=== PATIENT | female | born 1985 | race Caucasian/White ===

== ENCOUNTER → 2016-07-06 14:21 | Outpatient (CLI) | payer SELFPAY | END | disposition home or self-care (01) | LOC: D.LABREF 14:21 | PROVIDERS: Obstetrics & Gynecology | DX: O09.893 Supervision of other high risk pregnancies, third trimester (principal) ==

== ENCOUNTER 2019-11-23 10:54 | Inpatient (IN) | payer SELFPAY ==
[~2019-11-23] VITALS: Ht 167.6 cm; Wt 75.3 kg
[2019-11-23 11:33] LABS: NITRITE NEGATIVE (NEGATIVE); SPECIFIC GRAVITY 1.005 (1.005-1.020)
[2019-11-23 11:34] LABS: BILIRUBIN NEGATIVE (NEGATIVE); GLUCOSE NEGATIVE (NEGATIVE); KETONE NEGATIVE (NEGATIVE); UROBILINOGEN NORMAL (NORMAL)
[2019-11-23 11:35] LABS: BACTERIA FEW /hpf (NEGATIVE); EPITHELIAL CELLS 0-5 /hpf (0-5); RED CELLS - URINE 0-5 /hpf (0-5)
[2019-11-23 11:36] LABS: YEAST OCC /hpf (NONE SEEN)
[2019-11-23 12:14] LABS: HEMATOCRIT 35.9 % (36.0-48.0); HEMOGLOBIN 12.1 g/dL (12-16); MCH 34.1 pg (26.0-34.0); MCHC 33.7 g/dL (31.0-37.0); MCV 101.1 fL (80.0-100.0); MEAN PLATELET VOLUME 9.6 fL (7.4-10.4); RBC 3.55 10x6/uL (4.00-5.40); WBC 12.9 10x3/uL (4.8-10.8)
[2019-11-23 12:15] LABS: PLATELET COUNT 395 10x3/uL (130-400)
[2019-11-23 12:30] LABS: EOSINOPHILS 1 % (0-7); LYMPHOCYTES 23 % (15-50); MONOCYTES 1 % (2-11); NEUTROPHILS 74 % (40-80); PLATELET ESTIMATE INCREASED
--- NOTE | 2019-11-23 13:12 | MORECARE ---
CASE MANAGEMENT DISCHARGE SUMMARY PATIENT: ZABRINA VELEZ UNIT: [id number] ADM DATE: 11/23/19 AGE: 34 : 81 SEX: F ROOM/BED: D.1275 AUTHOR: SAPNA CALVIN PHYSICIAN: REFERRING PHYSICIAN: TRICIA MONTERO MD DATE OF SERVICE: 11/23/19 Discharge Plan Patient Name: ZABRINA VELEZ Facility: [facility]:[place] : 1985 Planned Disposition: Home Anticipated Discharge Date: Discharge Date: Expected LOS: 0 Initial Reviewer: [email or web address] Initial Review Date: 11/23/2019 Generated: 11/23/19 2:11 pm Patient Name: ZABRINA VELEZ Page [phone] at 1312 All edits/amendments must be made on the electronic document DICTATION DATE: 11/23/19 1311 SHOWER MAID: DELANEY 11/23/19 1311 RPT#: [id number] DC DATE: STATUS: ADM IN [facility] [address] [place] [address] END OF REPORT
[2019-11-23 17:39] LABS: UDS - AMPHET NEGATIVE QUAL (NEGATIVE); UDS - BARB NEGATIVE QUAL (NEGATIVE); UDS - BENZO NEGATIVE QUAL (NEGATIVE); UDS - COCAINE NEGATIVE QUAL (NEGATIVE); UDS - OPIATE NEGATIVE QUAL (NEGATIVE); UDS - PCP NEGATIVE QUAL (NEGATIVE); UDS - THC NEGATIVE QUAL (NEGATIVE)
--- NOTE | 2019-11-23 19:40 | NUR ---
PT UP TO BATHROOM. VOIDED 1000 ML AT THIS TIME. IV CONVERTED TO SALINE LOCK AND EPIDURAL CATH REMOVED WITH TIP INTACT. FUNDUS FIRM AND MIDLINE AND U/1 WITH MODERATE LOCHIA NOTED. STATES THAT PAIN IS APPROXIMATELY A 3 AT THIS TIME. NO ACUTE DISTRESS NOTED AT THIS TIME. SIDERAIL UP FOR SAFETY. CALL L KIRA IN PT REACH. Honey GARCIA RN
[2019-11-23] MEDS ORDERED: POLY-VI-SOL W/I50 ML PO (19:56)
[2019-11-23] MEDS ORDERED: ACETAMINOPHEN500 M1 PO (19:56)
[2019-11-23] MEDS ORDERED: PRENAVITE1 TAB PO (19:57)
[2019-11-23] MEDS ORDERED: VITAMIN B-6250 MG PO (19:58)
[2019-11-23 19:59] VITALS: BP 126/60; Ht 167.6 cm; Wt 75.3 kg
--- NOTE | 2019-11-23 20:15 | NUR ---
PT PROVIDED WITH WATER AT THIS TIME. NO OTHER NEEDS NOTED. Honey GARCIA RN
--- NOTE | 2019-11-23 21:00 | NUR ---
DR MONTERO CALLED AND NOTIFIED OF URINE RESULTS WITH TRICH AND YEAST. ORDER REC'D FOR 2 GRAMS OF FLAGYL. MAY ALSO GIVE WITH REGLAN FOR NAUSEA. Honey GARCIA RN
--- NOTE | 2019-11-23 21:04 | NUR ---
PT MEDICATED WITH MOTRIN AT THIS TIME. Honey GARCIA RN
--- NOTE | 2019-11-23 21:30 | NUR ---
IN WITH PATIENT AT THIS TIME. NO RELIEF WITH MOTRIN AT THIS TIME. PT WOULD LIKE TO WAIT TO SEE IF MOTRIN WILL WORK. PT S/O AT THE BEDSIDE AT THIS TIME. PT INFORMED THAT SHE HAS AN INFECTION THAT WAS FOUND IN HER URINE AND THAT MD HAD ORDERED FLAGYL FOR THE INFECTION. PT WANTED TO KNOW WHAT KIND OF INFECTION THAT SHE HAD. PT GAVE THIS NURSE PERMISSION TO TELL HER MEDICAL INFORMATION WITH S/O IN THE ROOM. PT INFORMED OF TRICHOMONAS AT THIS TIME AND WAS INSTRUCTED THAT THE ANTIBIOTICS WERE A ONE TIME DOSE FOR TREATMENT. PT GIVEN TEACHING ON THE INFECTION AND S/O INFORMED THAT HE WOULD NEED TO BE TESTED SO THAT IT WOULD NOT BE PASSED. Honey GARCIA RN
--- NOTE | 2019-11-23 21:40 | NUR ---
PT MEDICATED WITH FLAGYL AND REGLAN AT THIS TIME. Honey GARCIA RN
--- NOTE | 2019-11-23 22:49 | NUR ---
PT REC'D IN BED AT THIS TIME . RESTING COMFORTABLY. STATES THAT MOTRIN HELPED WITH PAIN. NO DISTRESS NOTED. Honey GARCIA RN
--- NOTE | 2019-11-24 00:45 | NUR ---
pt rec'd asleep at this time. at side in open crib. lacy العراقي rn
--- NOTE | 2019-11-24 02:36 | NUR ---
PT MEDICATED AT THIS TIME WITH PERCOCET FOR PAIN. WILL CONTINUE TO MONITOR. Honey GARCIA RN
--- NOTE | 2019-11-24 03:52 | NUR ---
PT ASLEEP AT THIS TIME. NO DISTRESS NOTED. Honey GARCIA. RN
--- NOTE | 2019-11-24 04:51 | NUR ---
PT COMPLAINS OF CRAMPING AT THIS TIME. PAIN 08/27. PT MEDICATED WITH MOTRIN. Honey GARCIA RN
[2019-11-24 05:14] LABS: BASOPHILS 0.2 % (0-2); EOSINOPHILS 1.9 % (0-7); HEMATOCRIT 34.2 % (36.0-48.0); HEMOGLOBIN 11.2 g/dL (12-16); IMMATURE GRANULOCYTES 0.4 % (0-5); LYMPHOCYTES 24.8 % (15-50); MCH 33.1 pg (26.0-34.0); MCHC 32.7 g/dL (31.0-37.0); MCV 101.2 fL (80.0-100.0); MEAN PLATELET VOLUME 9.5 fL (7.4-10.4); MONOCYTES 5.1 % (2-11); NEUTROPHILS 67.6 % (40-80); PLATELET COUNT 380 10x3/uL (130-400); RBC 3.38 10x6/uL (4.00-5.40)
--- NOTE | 2019-11-24 06:36 | NUR ---
PT ASLEEP AT THIS TIME. NO DISTRESS NOTED. Honey GARCIA RN
[2019-11-24 07:13] LABS: RAPID PLASMA REAGIN Non Reactive (Non Reactive)
--- NOTE | 2019-11-24 07:33 | NUR ---
ASSUMED CARE OF THIS PATIENT. CURRENTLY SLEEPING ON RIGHT SIDE, EYES CLOSED. IN CRIB. RESPIRATIONS EVEN. SIDERAILS UP X 2, CALL LIGHT IN REACH. WILL COMPLETE SHIFT ASSESSMENT WHEN AWAKE.
[2019-11-24 08:11] LABS: HEPATITIS C ANTIBODY <0.1 S/CO RAT (0.0-0.9)
--- NOTE | 2019-11-24 08:13 | NUR ---
SLEEPING ON RIGHT SIDE, RESP MONE, LIGHTS ON LOW. SIDE RAILS UP X 2, CALL LIGHT IN REACH. BREAKFAST TRAY AT BEDSIDE.
--- NOTE | 2019-11-24 09:01 | NUR ---
INFANT TO NURSERY BY NURSERY, RN. PT CONTINUES SLEEPING ON LEFT SIDE. RESPIRATIONS EVEN. SIDERAILS UP X 2, CALL LIGHT IN REACH. NO CURRENT VISITORS. WILL COMPLETE SHIFT ASSESSMENT WHEN AWAKE.
[2019-11-24 09:36] VITALS: BP 86/59
[2019-11-24 09:40] VITALS: BP 90/49
--- NOTE | 2019-11-24 09:40 | NUR ---
AROUSED FROM SLEEP FOR ASSESSMENT. VS OBTAINED. BP 86/50, REPEAT 90/49, P 63 PULSE OX 100%. BP LLD. UP TO BATHROOM TO VOID. SAYS SHE HASNT SLEPT FOR THREE DAY. VOIDED WITHOUT DIFFICULTY. USING SHWETHA-BOTTLE WITH BETADINE. SAYS SHE HAS NOT HAD MUCH BLEEDING. NO CLOTS. C/O PERINEAL PAIN, NO EDEMA OR ERRYTHEM NOTED. ICE PACK PLACED FOR PAIN RELIEF. BREAST AND BOTTLE FEEDING. SMOKER, DECLINES NICOTINE PATCH. CALL LIGHT IN REACH. UP AD KERLINE.
[2019-11-24 09:45] VITALS: BP 107/59
--- NOTE | 2019-11-24 10:50 | NUR ---
PERCOCET 5 MG AND MOTRIN 600 MG GIVEN PO FOR RELIEF OF 3-4/10 PERINEAL PAIN/PRESSURE AFTER DISCUSSING RELIEF MANAGEMENT OPTIONS. WILL ALSO GIVE TUCK FOR USE PRN Q 4 HOURS. BOTTLE FEEDING INFANT. NO ADDITIONAL REQUESTS.
[2019-11-24 11:09] LABS: RUBELLA IGG 2.08 index (Immune >0.99)
--- NOTE | 2019-11-24 12:16 | NUR ---
SITTING UP IN BED HOLDING . WAITING TO EAT LUNCH. DISCUSSED USE OF TUCKS PADS. PT REPLACED OWN ICE PACK. SAYS IT HELPS. DENIES NEEDING ANYTHING FURTHER AT THIS TIME. TO CALL IF ANYTHING IS NEEDED.
--- NOTE | 2019-11-24 13:59 | NUR ---
AMBULATED TO CLEAN ROOM WITHOUT DIFFICULTY. ALL BELONGS MOVED TO 1273. ITEMS GIVEN TO PATIENT FOR SHOWER WHEN SHE IS READY. IN NURSERY. ROOM WARM, FAN GIVEN. FRESH WATER AND COFFEE ALSO GIVEN. NO FURTHER REQUESTS. CALL LIGHT IN REACH. TO CALL IF ANYTHING IS NEEDED.
--- NOTE | 2019-11-24 15:44 | NUR ---
PERCOCET 5 MG GIVEN PO FOR RELIEF OF 3-4/10 GENERALIZED ACHING. ENCOURAGED OOB, MOVEMENT AND SHOWER AT THIS TIME. C/O SORENESS AT SALINE SITE. DC'D AT THIS TIME WITH TIP INTACT. TO NURSERY SO PT CAN SHOWER AT THIS TIME. INSTRUCTED PAINTER SPRAY LIGHT IF NEEDED WHILE IN SHOWER. SHOWER CHAIR GIVEN. READY FOR DINNER STATES "I'M HUNGRY". WILL BRING SNACK WHEN OUT OF SHOWER.
--- NOTE | 2019-11-24 16:47 | NUR ---
FINISHED SHOWER. SAYS SHE FEELS BETTER. STILL GENERALIZED ACHING 08/27. MORTRIN 600 MG GIVEN PO. REGULAR DIET AT BEDSIDE. ENCOURAGED TO WALK IN LI AND OOB. VERBALIZED UNDERSTANDING. CALL LIGHT IN REACH. CURRENTLY AMBULATING IN ROOM.
--- NOTE | 2019-11-24 17:26 | NUR ---
SITTING UP AT BEDSIDE EATING DINNER. DENIES NEEDING ANYTHING. VISITOR X 1 IN ROOM. INFORMED OF VISITATION POLICY REGARDING ONE VISITOR, SAME VISITOR FOR A DAY- 24 HOUR PERIOD. STATES "THAT'S NOT HOW IT WAS YESTERDAY. THEY LET THEM SWAP OUT." INFORMED PT THAT HOSPITAL WIDE POLICY IS ABOVE AND THAT IT OFTEN CHANGED. VERBALIZED UNDERSTANDING.
--- NOTE | 2019-11-24 17:47 | NUR ---
AMBULATED IN LI TO MILL OPERATOR HEAD FROM NURSERY. VISITOR WITH PATIENT. RETURNED TO ROOM WITH INFANT IN CRIB.
[2019-11-24 18:42] VITALS: BP 109/56
[2019-11-24 19:40] VITALS: BP 112/59
--- NOTE | 2019-11-24 21:09 | NUR ---
feeling relief from pain, sitting up feeding a bottle to , smiling making good eye contact. no further needs voiced
--- NOTE | 2019-11-24 22:15 | NUR ---
ambulating in halls, states feeling relief from pelvic pressure. in room w/ family member
--- NOTE | 2019-11-24 23:25 | NUR ---
room check, pt resting quietly in left lateral position, respirations even and unlabored, w/o signs of distress, did not disturb
--- NOTE | 2019-11-25 01:00 | NUR ---
continues resting quietly in bed w/o signs of distress, did not disturb. family member at bedside
--- NOTE | 2019-11-25 03:00 | NUR ---
RESTING QUIETLY IN ROOM W/O SIGNS OF DISTRESS DID NOT DISTURB
--- NOTE | 2019-11-25 04:27 | NUR ---
ROUNDS MADE. PT RESTING QUIETLY TO RT SIDE W/EYES CLOSED. RESP EVEN AND UNLABORED. PT LEFT UNDISTURBED AT THIS TIME.
--- NOTE | 2019-11-25 06:12 | NUR ---
ROUNDS MADE. PT SITING UP ON SIDE OF BED. PAIN AND NEEDS ASSESSED. PT REPORTS PAIN IS BETTER. RATES 3/10. DENIES NEEDS.
--- NOTE | 2019-11-25 07:25 | NUR ---
ASSUMED CARE OF THIS PATIENT, SLEEPING. AROUSED EASILY BUT WENT BACK TO SLEEP. WILL COMPLETE SHIFT ASSESSMENT WHEN AWAKE. ANTICIPATE DC HOME TODAY OR ROOMING-IN STATUS. VISITOR X 1 SLEEPING ON FLOOR. SIDERAILS UP X 2, CALL LIGHT IN REACH.
--- NOTE | 2019-11-25 08:45 | NUR ---
WATER POLLUTION SCIENTIST TO ROOM TO VISIT WITH PATIENT. WILL COMPLETE SHIFT ASSESSMENT WHEN SHE IS DONE.
[2019-11-25 08:48] VITALS: BP 105/64
--- NOTE | 2019-11-25 09:01 | NUR ---
SHIFT ASSESSMENT COMPLETED. 08/27 INCISIONAL PAIN. "I'M ALRIGHT" DENIES NEEDING FURTHER PAIN MEDICATION. SAYS SHE RECEIVE "TETNUS" VACCINE IN 2017. DECLINES TDAP TODAY. VERBAL AND WRITTEN INFORMATION WAS GIVEN. SAYS SHE RECEIVED THE VACCINE NOT FOR INJURY "THE BIG VACCINE". SMOKER, BOTTLE FEEDING, O POSITIVE RUBELLA IMMUNE, RPR NR, HIV AND HBSAG NR. GBS +. ANTICIPATE DC HOME AFTER 1500 TODAY. REGULAR DIET AT BEDSIDE. UP TO VOID. VISITOR X 1 IN ROOM. SIDERAILS UP X 2, CALL LIGHT IN REACH.
--- NOTE | 2019-11-25 09:39 | NUR ---
CURRENTLY NOT IN ROOM. WILL GIVE SURFAK WHEN SHE RETURNS.
--- NOTE | 2019-11-25 10:33 | NUR ---
RETURNED FROM WALKING. REMINDED OF POLICY NOT TO LEAVE THE HOSPITAL TO GO TO SMOKE AND RECOMMENDATION TO REMAIN ON L&D FLOOR. ALSO TO WEAR MASKS WHEN OUTSIDE OF ROOM. VISITOR IN ROOM. IN ROOM. PERCOCET 5 MG GIVEN PO FOR 4/10 PERINEAL PAIN. ALSO REQUESTED MOTRIN- NOT QUITE TIME. WILL GIVEN WHEN DUE.
--- NOTE | 2019-11-25 11:13 | NUR ---
MOTRIN 600 MG GIVEN PO FOR RELIEF OF 4/10 ABDOMINAL CRAMPING. SAYS HER PERINEAL PAIN IS BETTER NOW 2-3. LAYING IN BED, LIGHTS ON LOW. VISITOR IN ROOM. IN CRIB. EARLIER PT WAS HOLDING INFANT IN ARMS AND WALKING IN ROOM TALKING TO . CALL LIGHT IN REACH. TO CALL IF ANYTHING IS NEEDED.
--- NOTE | 2019-11-25 12:40 | NUR ---
SLEEPING ON RIGHT SIDE. RESPIRATIONS EVEN. SLEEPING IN CRIB ON LEFT SIDE, RESPIRATIONS EVEN. VISITOR X 1 IN ROOM. REGULAR DIET AT BEDSIDE. WILL TEACH SITZ BATH WHEN AWAKE.
--- NOTE | 2019-11-25 14:01 | NUR ---
SITTING UP IN BED CHANGING . VISITOR IN ROOM. READY TO GO HOME. ANTICIPATE DC AT APPROX 1500. DENIES NEEDING ANYTHING AT THIS TIME. STILL EATING LUNCH. TO CALL IF ANYTHING IS NEEDED.
--- NOTE | 2019-11-25 14:55 | NUR ---
DC TEACHING COMPLETED TO INCLUDE ROUTINE PP CARE, PP DEPRESSSION, S&S INFECTION, SITZ BATH, DANGER SIGNS, MEDICATION ADMINISTRATION, BREASTCARE/BOTTLEFEEDING, BC OPTIONS, TDAP, SMOKING CESSATION AND FOLLOW-UP. BOTH VERBAL AND WRITTEN INFORMATION GIVEN. VERBALIZED UNDERSTANDING. NO SPECIFIC QUESTIONS. READY TO GO HOME. WILL DC WHEN INFANT DC'D.
--- NOTE | 2019-11-25 15:12 | NUR ---
DC'D VIA WHEELCHAIR TO CAR. IN CARSEAT. FAMILY MEMBER DRIVING CAR. ALL BELONGINGS REMOVED FROM ROOM. HAS DC INSTRUCTIONS. TO CALL TUESDAY FOR F/U PP VISIT.
--- NOTE | 2019-11-26 09:44 | MORECARE ---
CASE MANAGEMENT DISCHARGE SUMMARY PATIENT: ZABRINA VELEZ UNIT: [id number] ADM DATE: 11/23/19 AGE: 34 : 81 SEX: F ROOM/BED: D.[facility] AUTHOR: SAPNA CALVIN PHYSICIAN: REFERRING PHYSICIAN: TRICIA MONTERO MD DATE OF SERVICE: 11/26/19 Discharge Plan Patient Name: ZABRINA VELEZ Facility: [facility]:[place] : 1985 Planned Disposition: Home Anticipated Discharge Date: Discharge Date: 11/25/2019 Expected LOS: 0 Initial Reviewer: [email or web address] Initial Review Date: 11/23/2019 Generated: 11/26/19 10:43 am Last DP export: 11/23/19 12:12 pm Patient Name: ZABRINA VELEZ Page [phone] at 0944 All edits/amendments must be made on the electronic document DICTATION DATE: 11/26/1945 AUTOMOBILE BUMPER STRAIGHTENER: DELANEY 11/26/19 0943 RPT#: [id number] DC DATE:11/25/19 STATUS: DIS IN [facility] [address] [place] [address] END OF REPORT
[2019-11-26 17:08] LABS: HGB SOLUBILITY (SICKLE SCREEN) Negative (Negative)
== END 2019-11-25 15:12 | disposition home or self-care (01) | DRG 807 ==
LOC: D.LDO 10:54 → D.LD 11:58
PROVIDERS: ADMIT Obstetrics & Gynecology; ATTEND Obstetrics & Gynecology
PROC: 0W8NXZZ Division of Female Perineum, External Approach (ICD-10-PCS; principal; 2019-11-23)
PROC: 10E0XZZ Delivery of Products of Conception, External Approach (ICD-10-PCS; 2019-11-23)
DX: O99.824 Streptococcus B carrier state complicating childbirth (principal); Z37.0 Single live birth; Z3A.39 39 weeks gestation of pregnancy

== ENCOUNTER 2020-10-14 17:26 | Emergency (ER) | payer OTHER ==
[~2020-10-14] VITALS: Ht 167.6 cm; Wt 61.4 kg
[~2020-10-14 17:26] MED LIST: ACETAMINOPHEN500 M1 PO; POLY-VI-SOL W/I50 ML PO; PRENAVITE1 TAB PO; VITAMIN B-6250 MG PO
[2020-10-14 17:39] VITALS: Ht 167.6 cm; Wt 61.4 kg
[2020-10-14] MEDS ORDERED: BUPROPION XL300 MG PO (17:40)
[2020-10-14] MEDS ORDERED: CELEXA20 MG PO (17:40)
[2020-10-14] MEDS ORDERED: BUPRENORPHIN-N1 EACH SL (17:41)
[2020-10-14 18:08] LABS: BASOPHILS 2.2 % (0-2); EOSINOPHILS 5.7 % (0-7); HEMATOCRIT 37.9 % (36.0-48.0); HEMOGLOBIN 13.1 g/dL (12-16); LYMPHOCYTE ABS# 1.22 10x3/uL (1.18-3.74); LYMPHOCYTES 33.2 % (15-50); MCH 34.6 pg (26.0-34.0); MCHC 34.6 g/dL (31.0-37.0); MEAN PLATELET VOLUME 10.2 fL (7.4-10.4); MONOCYTES 11.4 % (2-11); NEUTROPHIL ABS# 1.75 10x3/uL (1.56-6.13); NEUTROPHILS 47.5 % (40-80); RBC 3.79 10x6/uL (4.00-5.40); RDW 12.6 % (11.5-14.5); WBC 3.7 10x3/uL (4.8-10.8)
[2020-10-14 18:17] LABS: CALC OSMOLALITY 277 mosm/kg (275-300); CALCIUM 7.9 mg/dL (8.5-10.1); CARBON DIOXIDE 25.1 mmol/L (21.0-32.0); CHLORIDE - SERUM 104 mmol/L (98-107); CREATININE - SERUM 0.6 mg/dL (0.6-1.3); GLUCOSE 147 mg/dL (74-106); POTASSIUM - SERUM 3.9 mmol/L (3.5-5.1); SODIUM 139 mmol/L (136-145); UREA NITROGEN 5 mg/dL (7-18); eGFR NON AFRICAN AMERICAN > 90 mL/min (90-120)
[2020-10-14 18:24] LABS: HCG URINE NEGATIVE (NEGATIVE)
[2020-10-14 18:26] LABS: ALBUMIN 3.4 g/dL (3.4-5.0); ALKALINE PHOSPHATASE 242 U/L (30-120); ALT (SGPT) 161 U/L (10-68); BILIRUBIN - TOTAL 0.25 mg/dL (0.2-1.3); PLATELET COUNT 210 10x3/uL (130-400); PROTEIN - SERUM 6.1 g/dL (6.4-8.2)
[2020-10-14 18:27] LABS: LIPASE 40 U/L (73-393); TROPONIN-I < 0.017 ng/mL (0.000-0.060)
[2020-10-14 18:56] LABS: BILIRUBIN NEGATIVE (NEGATIVE); KETONE NEGATIVE (NEGATIVE); NITRITE NEGATIVE (NEGATIVE); UROBILINOGEN NORMAL mg/dL (< 2)
[2020-10-14] MEDS ORDERED: LINZESS72 MCG PO (22:29)
[2020-10-14 23:05] VITALS: BP 106/72
== END 2020-10-14 23:05 | disposition home or self-care (01) ==
LOC: D.ER 17:26
PROVIDERS: Family Medicine
DX: R14.0 Abdominal distension (gaseous) (principal); K59.00 Constipation, unspecified

== ENCOUNTER 2020-10-20 16:39 | Emergency (ER) | payer OTHER ==
[2020-10-14 17:39] VITALS: Ht 167.6 cm; Wt 59.1 kg
[~2020-10-20] VITALS: Ht 167.6 cm; Wt 59.1 kg
[~2020-10-20 16:39] MED LIST changes: +BUPRENORPHIN-N1 EACH SL; +BUPROPION XL300 MG PO; +CELEXA20 MG PO; +LINZESS72 MCG PO
[2020-10-20 16:45] VITALS: BP 120/73
[2020-10-20 18:32] LABS: BASOPHILS 2.8 % (0-2); EOSINOPHILS 2.4 % (0-7); HEMATOCRIT 42.1 % (36.0-48.0); HEMOGLOBIN 14.5 g/dL (12-16); IMMATURE GRANULOCYTES 0.2 % (0-5); LYMPHOCYTE ABS# 2.41 10x3/uL (1.18-3.74); MCH 34.5 pg (26.0-34.0); MCHC 34.4 g/dL (31.0-37.0); MCV 100.2 fL (80.0-100.0); MEAN PLATELET VOLUME 10.1 fL (7.4-10.4); MONOCYTES 10.8 % (2-11); NEUTROPHILS 35.8 % (40-80); PLATELET COUNT 311 10x3/uL (130-400); RDW 12.9 % (11.5-14.5)
[2020-10-20 18:33] LABS: CALC OSMOLALITY 272 mosm/kg (275-300); CALCIUM 8.5 mg/dL (8.5-10.1); CARBON DIOXIDE 28.1 mmol/L (21.0-32.0); CHLORIDE - SERUM 104 mmol/L (98-107); CREATININE - SERUM 0.6 mg/dL (0.6-1.3); GLUCOSE 114 mg/dL (74-106); POTASSIUM - SERUM 3.6 mmol/L (3.5-5.1); SODIUM 137 mmol/L (136-145); UREA NITROGEN 7 mg/dL (7-18); eGFR NON AFRICAN AMERICAN > 90 mL/min (90-120)
[2020-10-20 18:40] LABS: ALBUMIN 3.1 g/dL (3.4-5.0); ALKALINE PHOSPHATASE 351 U/L (30-120); ALT (SGPT) 924 U/L (10-68); BILIRUBIN - TOTAL 3.36 mg/dL (0.2-1.3); PROTEIN - SERUM 7.1 g/dL (6.4-8.2)
[2020-10-20 18:45] LABS: BILIRUBIN 2+ (NEGATIVE); KETONE NEGATIVE (NEGATIVE); NITRITE NEGATIVE (NEGATIVE); UROBILINOGEN NORMAL mg/dL (< 2)
[2020-10-20] MEDS ORDERED: HYDROCODON-ACE1 EA10 PO (20:42)
[2020-10-20] MEDS ORDERED: ZOFRAN ODT4 MG/UDTAB PO (20:42)
[2020-10-22 15:12] LABS: HEPATITIS C ANTIBODY <0.1 (0.0-0.9)
== END 2020-10-20 21:19 | disposition home or self-care (01) ==
LOC: D.ER 16:39
PROVIDERS: Emergency Medicine
DX: R74.01 Elevation of levels of liver transaminase levels (principal); K75.9 Inflammatory liver disease, unspecified; R53.83 Other fatigue